=== PATIENT | female | born 1970 | race Caucasian/White ===

== ENCOUNTER 2020-06-02 05:06 | Day surgery (SDC) | payer OTHER ==
[2020-06-01 10:55] LABS: COVID AG,FIA SOURCE NASOPHARYNGEAL
[~2020-06-02] VITALS: Ht 167.6 cm; Wt 104.5 kg
[~2020-06-02 05:06] MED LIST: ACET-66 PO; ASPI-1111 PO; ATOR20TA65 PO; CETI-454 PO; FOLI-130 PO; HYDR200T4 PO; IBUP-2070 PO; ISOS30TA6 PO; METH2.5 PO; METO-408 PO; MYCO250C27 PO; NORE0.3520 PO; OMEP20 PO; PRED5 PO; RINGERS SOLUTION,LACTATED 500 ML IV ONE; SERT50TA12 PO; TICA90TA PO
[2020-06-02] MEDS ORDERED: CYCLOPENTOLATE HCL 1% 2 ML OPHTHALMIC SOLUTION ONE (05:11)
[2020-06-02] MEDS ORDERED: RINGERS SOLUTION,LACTATED 500 ML IV ONE (05:11)
[2020-06-02] MEDS ORDERED: PHENYLEPHRINE HCL 2.5% 2 ML OPHTHALMIC SOLUTION ONE (05:11)
[2020-06-02] MEDS ORDERED: TROPICAMIDE 1% 2 ML OPHTHALMIC SOLUTION ONE (05:11)
[2020-06-02] MEDS ORDERED: MOXIFLOXACIN HCL 0.5% 3 ML OPHTHALMIC SOLUTION ONE ×2 (05:11→06:39)
[2020-06-02] MEDS ORDERED: TETRACAINE HCL/PF 0.5% 4 ML OPHTHALMIC SOLUTION ONE (05:11)
[2020-06-02] MEDS ORDERED: KETOROLAC TROMETHAMINE 0.5% 5 ML OPHTHALMIC SOLUTION ONE (05:11)
[2020-06-02] MEDS: PHENYLEPHRINE HCL 2.5% 2 ML OPHTHALMIC SOLUTION OD SCH ×3 (05:49→06:04)
[2020-06-02] MEDS: TROPICAMIDE 1% 2 ML OPHTHALMIC SOLUTION OD SCH ×3 (05:49→06:04)
[2020-06-02] MEDS: CYCLOPENTOLATE HCL 1% 2 ML OPHTHALMIC SOLUTION OD SCH ×3 (05:49→06:04)
[2020-06-02] MEDS: MOXIFLOXACIN HCL 0.5% 3 ML OPHTHALMIC SOLUTION OD SCH ×3 (05:49→06:04)
[2020-06-02] MEDS: KETOROLAC TROMETHAMINE 0.5% 5 ML OPHTHALMIC SOLUTION OD SCH ×3 (05:49→06:04)
[2020-06-02] MEDS ORDERED: LIDOCAINE/PF 1% 2 ML VIAL ONE (06:15)
[2020-06-02] MEDS ORDERED: POVIDONE-IODINE 10% 15 ML SOLUTION UD ONE ×2 (06:15→17:56)
[2020-06-02] MEDS ORDERED: TETRACAINE HCL/PF 0.5% 4 ML OPHTHALMIC SOLUTION OD ONE (06:30)
[2020-06-02] MEDS ORDERED: PrednisoLONE ACETATE 1% 5 ML OPHTHALMIC SUSPENSION ONE (06:39)
[2020-06-02] MEDS ORDERED: NEOMYCIN/POLYMYXIN B/DEXAMETH 3.5 GM OPHTHALMIC OINTMENT ONE (06:41)
[2020-06-02] MEDS ORDERED: HYALURONATE SODIUM 12 MG/ML 0.8 ML SYRINGE IO ONE (17:56)
[2020-06-02] MEDS ORDERED: BALANCED SALT 15 ML OPHTHALMIC IRRIG.SOLN ONE (17:56)
[2020-06-02] MEDS ORDERED: EPINEPHrine 1:10,000 [1 MG/10 ML] SYRINGE ONE (17:56)
[2020-06-02] MEDS ORDERED: LIDOCAINE 1% 20 ML VIAL *UNAVILABLE ONE (17:56)
== END 2020-06-02 08:10 | disposition home or self-care (01) ==
LOC: SURGERY 05:06
PROVIDERS: ATTEND Ophthalmology
DX: H25.11 Age-related nuclear cataract, right eye (principal); I10 Essential (primary) hypertension; E78.00 Pure hypercholesterolemia, unspecified; D64.9 Anemia, unspecified; E66.3 Overweight; I25.10 Atherosclerotic heart disease of native coronary artery without angina pectoris; F32.9 Major depressive disorder, single episode, unspecified; Z88.8 Allergy status to other drugs, medicaments and biological substances; Z95.5 Presence of coronary angioplasty implant and graft; Z98.890 Other specified postprocedural states
CPT/HCPCS: 66984; 84703; 87426; 93005; C9803; J0171; J3490 ×3; J7120; V2632